=== PATIENT | male | born 1975 | race Caucasian/White ===

== ENCOUNTER 2023-03-13 08:43 | Day surgery (SDC) | payer MEDICAID ==
[~2023-03-13] VITALS: Ht 172.7 cm; Wt 68.0 kg
[2023-03-13] MEDS ORDERED: MIDAZOLAM 5 MG/5 ML VIAL ONE (09:07)
[2023-03-13] MEDS ORDERED: fentaNYL citrate 0.05 MG/ML VIAL ONE (09:07)
[2023-03-13] MEDS ORDERED: LIDOCAINE 2% 100 MG/5 ML UJET TP ONE (09:07)
[2023-03-13] MEDS ORDERED: diphenhydrAMINE 50 MG/ML VIAL ONE (09:07)
[2023-03-13] MEDS ORDERED: fentaNYL citrate 0.05 MG/ML VIAL IVP ONE (10:00)
[2023-03-13] MEDS ORDERED: MIDAZOLAM 2 MG/2 ML VIAL IVP ONE (10:00)
[2023-03-13] MEDS ORDERED: diphenhydrAMINE 50 MG/ML VIAL IVP ONE (10:00)
== END 2023-03-13 11:05 | disposition home or self-care (01) ==
LOC: MOR 08:43 → MMU 08:43 → MOR 11:05
PROVIDERS: ATTEND Internal Medicine Gastroenterology
DX: Z12.11 Encounter for screening for malignant neoplasm of colon (principal); K63.5 Polyp of colon; J45.909 Unspecified asthma, uncomplicated; Z87.11 Personal history of peptic ulcer disease
CPT/HCPCS: 45380; 88305; J1200; J2250; J3010